=== PATIENT | female | born 1985 | race African-American/Black ===

== ENCOUNTER 2017-06-22 16:05 | Emergency (ER) | payer MEDICAID ==
[~2017-06-22] VITALS: Ht 177.8 cm; Wt 77.0 kg
[~2017-06-22 16:05] MED LIST: ZOFR4TAB3 SL
[2017-06-22 16:06] VITALS: BP 99/59; PULSE 85; RESP 16; TEMP 98.6; O2SAT 100
--- NOTE | 2017-06-22 16:12 | PD ---
Physical Exam Date Seen by Provider: Jun 22, 2017 Time Seen by Provider: 16:09 Narrative 31 YOBF 1 WEEK HO [place]. TODAY FEELING WEAK AND DIZZY .SENT HOME FROM WORK. 06/17 PAIN SHARP ACHING VS REVIEWED AWAITING BED PLACEMENT Data Data Last Documented VS Vital Signs Date Time Temp Pulse Resp B/P Pulse Ox O2 Delivery O2 Flow Rate FiO2 06/22/17 16:06 98.6 85 16 99/59 100 Room Air MDM Supervised Visit with NUBIA: Delmer Santos Jun 22, 2017 16:12
--- NOTE | 2017-06-22 20:23 | PD ---
HPI . nausea, vomiting, headache and abdominal cramping x 1 week Chief Complaint: Headache Time Seen by Provider: 20:22 Travel History International Travel<30 days: No Contact w/Intl Traveler<30days: No Traveled to known affect area: No History of Present Illness HPI 31- year old female with one miscarriage presents to the ED complaining of a headache. The patient reports she had a headache and dizziness for the past week. She tried Tylenol and another strong medication from her grandmother, but is unsure of the name. The patient reports the pain is currently in her left anabaptism, but has traveling around her head the past week. She rates it as a 9/ 10. She reports she has also has nausea, vomiting, diarrhea, and cramping for the past week. Patient denies any vaginal discharge or bleeding. She reports no medical conditions, and had 2- C-sections. She reports she is only on control. Her last menstrual period was in [facility] Past Medical History Anemia: Yes Diminished Hearing: No ?: Unknown Menopausal: No : 8 Para: 5 Miscarriage: 2 Social History Alcohol Use: No Tobacco Use: No Substance Use: No Allergies-Medications (Allergen,Severity, Reaction): Coded Allergies: No Known Allergies (Verified , 10/01/15) Reported Meds & Prescriptions Reported Meds & Active Scripts Active Keflex (Cephalexin) 500 Mg Cap 500 Mg PO Q12H 7 Days Zofran ODT (Ondansetron HCl) 4 Mg Tab 4 Mg SL TID FOR NAUSEA/VOMITING Review of Systems General / Constitutional: No: Fever Eyes: No: Visual changes HENT: No: Headaches Cardiovascular: No: Chest Pain or Discomfort Respiratory: No: Shortness of Breath Gastrointestinal: Positive: Nausea, Vomiting, Diarrhea, Abdominal Pain ( cramping) Genitourinary: No: Dysuria Musculoskeletal: No: Pain Skin: No Rash Neurologic: Positive: Headache, No: Weakness Psychiatric: No: Depression Endocrine: No: Polydipsia Hematologic/Lymphatic: No: Easy Bruising Physical Exam Narrative GENERAL: AAO x 3, no acute distress, Well-nourished, well-developed patient. SKIN: Warm and dry. No visible rashes or bruising. HEAD: Normocephalic and atraumatic. EYES: No scleral icterus. No injection or drainage. EOM intact, PERRLA ENT: No nasal drainage noted. Mucous membranes pink. Airway patent. moist mucous membranes, TMs normal b/l, no oropharynx abn. NECK: Supple, trachea midline. No JVD. CARDIOVASCULAR: Regular rate and rhythm without murmurs, gallops, or rubs. RESPIRATORY: Breath sounds equal bilaterally. No accessory muscle use. No rhonchi or rales. GASTROINTESTINAL: Abdomen soft, non-tender, nondistended. no rebound or guarding EXTREMITIES: No cyanosis or edema. BACK: Nontender without obvious deformity. No CVA tenderness. NEURO: CN II-12 intact, meat stringer strength normal b/l, UE and LE 5/5, no focal deficits PSYCH: AAO x 3, normal affect. Data Data Last Documented VS Vital Signs Date Time Temp Pulse Resp B/P Pulse Ox O2 Delivery O2 Flow Rate FiO2 06/22/17 20:31 84 18 122/75 98 Room Air 06/22/17 16:06 98.6 Orders Ed Urine Pregnancytest Poc (06/22/17 16:12) Beta Hcg (Quant/Titer) (06/22/17 20:43) Complete Blood Count With Diff (06/22/17 20:43) Us Pelvis (Ques Preg/Ectopic) (06/22/17 ) Urinalysis - C+S If Indicated (06/22/17 20:43) Comprehensive Metabolic Panel (06/22/17 20:43) Lipase (06/22/17 20:43) Metoclopramide (Reglan) (06/22/17 20:45) Sodium Chlor 0.9% 1000 Ml Inj (Ns 1000 M (06/22/17 20:45) Acetaminophen (Tylenol) (06/22/17 20:45) Urine Culture (06/22/17 20:50) Cephalexin (Keflex) (06/22/17 22:45) Labs Laboratory Tests Test 06/22/17 20:50 White Blood Count 8.1 TH/MM3 Red Blood Count 4.86 MIL/MM3 Hemoglobin 10.1 GM/DL Hematocrit 32.2 % Mean Corpuscular Volume 66.3 FL Mean Corpuscular Hemoglobin 20.8 PG Mean Corpuscular Hemoglobin 31.4 % Concent Red Cell Distribution Width 17.9 % Platelet Count 303 TH/MM3 Mean Platelet Volume 8.6 FL Neutrophils (%) (Auto) 55.2 % Lymphocytes (%) (Auto) 35.0 % Monocytes (%) (Auto) 8.4 % Eosinophils (%) (Auto) 1.1 % Basophils (%) (Auto) 0.3 % Neutrophils # (Auto) 4.5 TH/MM3 Lymphocytes # (Auto) 2.8 TH/MM3 Monocytes # (Auto) 0.7 TH/MM3 Eosinophils # (Auto) 0.1 TH/MM3 Basophils # (Auto) 0.0 TH/MM3 CBC Comment DIFF FINAL Differential Comment Urine Color YELLOW Urine Turbidity HAZY Urine pH 6.5 Urine Specific [place] 1.020 Urine Protein TRACE mg/dL Urine Glucose (UA) NEG mg/dL Urine Ketones NEG mg/dL Urine Occult Blood NEG Urine Nitrite NEG Urine Bilirubin NEG Urine Urobilinogen LESS THAN 2.0 MG/DL Urine Leukocyte Esterase LARGE Urine RBC 2 /hpf Urine WBC 9 /hpf Urine Squamous Epithelial 12 /hpf Cells Urine Amorphous Sediment RARE Urine Mucus FEW /lpf Microscopic Urinalysis Comment CULTURE INDICATED Sodium Level 131 MEQ/L Potassium Level 3.8 MEQ/L Chloride Level 101 MEQ/L Carbon Dioxide Level 23.6 MEQ/L Anion Gap 6 MEQ/L Blood Urea Nitrogen 9 MG/DL Creatinine 0.58 MG/DL Estimat Glomerular Filtration 147 ML/MIN Rate Random Glucose 77 MG/DL Calcium Level 8.6 MG/DL Total Bilirubin 0.1 MG/DL Aspartate Amino Transf 18 U/L (AST/SGOT) Alanine Aminotransferase 13 U/L (ALT/SGPT) Alkaline Phosphatase 60 U/L Total Protein 7.9 GM/DL Albumin 3.6 GM/DL Lipase 132 U/L Human Chorionic Gonadotropin, [address] MIU/ML Quant [facility] Medical Decision Making Medical Screen Exam Complete: Yes Emergency Medical Condition: Yes Medical Record Reviewed: Yes Differential Diagnosis , miscarriage, sinusitis, Narrative Course 31-year-old female here with complaints of nausea, vomiting, abdominal cramping and headache for the past week. On examination there are no gross abnormalities. She does have point of care test that was positive. I believe many of her symptoms are related to early . Report some abdominal cramping, therefore I have ordered a beta hCG as well as an ultrasound. I have provided her with reglan, tylenol and IVF. Case has been discussed with my attending Dr. Garay, who will resume care of this patient. Scripts Cephalexin (Keflex)500 Mg [id number] Mg PO Q12H 7 Days Ref 0 Prov:Toni Garay MD 06/22/17 Condition: Stable Harriet Chavez Jun 22, 2017 20:22
[2017-06-22 20:31] VITALS: BP 122/75; PULSE 84; RESP 18; O2SAT 98
[2017-06-22] MEDS ORDERED: METOCLOPRAMIDE HCL 10 MG TAB PO ONE (20:45)
[2017-06-22] MEDS ORDERED: ACETAMINOPHEN 325 MG TAB PO ONE (20:45)
[2017-06-22] MEDS ORDERED: SODIUM CHLOR 0.9% 1000 ML INJ 1,000 ML IV ONE (20:45)
[2017-06-22 21:32] LABS: AUTOMATED NEUTROPHIL # 4.5 TH/MM3 (1.8-7.7); BASOPHIL % 0.3 % (0.0-2.0); EOSINOPHIL # 0.1 TH/MM3 (0-0.4); EOSINOPHIL % 1.1 % (0.0-4.0); HEMATOCRIT 32.2 % (35.0-46.0); HEMO FLAGS DIFF FINAL; LYMPHOCYTE # 2.8 TH/MM3 (1.0-4.8); MEAN CELL VOLUME 66.3 FL (80.0-100.0); MEAN CORPUSCULAR HEMOGLOBIN 20.8 PG (27.0-34.0); MEAN CORPUSCULAR HGB CONC 31.4 % (32.0-36.0); MONO % 8.4 % (0.0-8.0); NEUT % 55.2 % (16.0-70.0); PLATELET COUNT 303 TH/MM3 (150-450); RED BLOOD COUNT 4.86 MIL/MM3 (4.00-5.30); RED CELL DISTRIBUTION WIDTH 17.9 % (11.6-17.2); WHITE BLOOD COUNT 8.1 TH/MM3 (4.0-11.0)
[2017-06-22 21:41] LABS: BLOOD, URINE NEG (NEG); COMMENT (UR) CULTURE INDICATED; CULTURE IF INDICATED CULTURE INDICATED; GLUCOSE,URINE NEG (NEG); KETONE, URINE NEG (NEG); MUCUS URINE FEW /lpf (OCC); NITRITE,URINE NEG (NEG); PH, URINE 6.5 (5.0-8.5); SQUAMOUS EPITHELIAL CELL URINE 12 /hpf (0-5); URINE COLOR YELLOW (YELLW/STRAW)
[2017-06-22 21:55] LABS: ALT (GPT) 13 U/L (10-53)
[2017-06-22 22:13] LABS: ALKALINE PHOSPHATASE 60 U/L (45-117); BETA HCG QUANT 79188 MIU/ML (0-5); TOTAL BILIRUBIN ADULT 0.1 MG/DL (0.2-1.0)
[2017-06-22 22:25] LABS: ANION GAP 6 MEQ/L (5-15); AST (GOT) 18 U/L (15-37); BICARBONATE 23.6 MEQ/L (21.0-32.0); BLOOD UREA NITROGEN 9 MG/DL (7-18); CHLORIDE 101 MEQ/L (98-107); GLOMERULAR FILTRATION RATE 147 ML/MIN (>89); POTASSIUM 3.8 MEQ/L (3.5-5.1); SODIUM (NA) 131 MEQ/L (136-145)
[2017-06-22] MEDS ORDERED: CEPH-460 PO (22:33)
--- NOTE | 2017-06-22 22:34 | PD ---
Data Data Last Documented VS Vital Signs Date Time Temp Pulse Resp B/P Pulse Ox O2 Delivery O2 Flow Rate FiO2 06/22/17 20:31 84 18 122/75 98 Room Air 06/22/17 16:06 98.6 Orders Ed Urine Pregnancytest Poc (06/22/17 16:12) Beta Hcg (Quant/Titer) (06/22/17 20:43) Complete Blood Count With Diff (06/22/17 20:43) Us Pelvis (Ques Preg/Ectopic) (06/22/17 ) Urinalysis - C+S If Indicated (06/22/17 20:43) Comprehensive Metabolic Panel (06/22/17 20:43) Lipase (06/22/17 20:43) Metoclopramide (Reglan) (06/22/17 20:45) Sodium Chlor 0.9% 1000 Ml Inj (Ns 1000 M (06/22/17 20:45) Acetaminophen (Tylenol) (06/22/17 20:45) Urine Culture (06/22/17 20:50) Cephalexin (Keflex) (06/22/17 22:45) Labs Laboratory Tests Test 06/22/17 20:50 White Blood Count 8.1 TH/MM3 Red Blood Count 4.86 MIL/MM3 Hemoglobin 10.1 GM/DL Hematocrit 32.2 % Mean Corpuscular Volume 66.3 FL Mean Corpuscular Hemoglobin 20.8 PG Mean Corpuscular Hemoglobin 31.4 % Concent Red Cell Distribution Width 17.9 % Platelet Count 303 TH/MM3 Mean Platelet Volume 8.6 FL Neutrophils (%) (Auto) 55.2 % Lymphocytes (%) (Auto) 35.0 % Monocytes (%) (Auto) 8.4 % Eosinophils (%) (Auto) 1.1 % Basophils (%) (Auto) 0.3 % Neutrophils # (Auto) 4.5 TH/MM3 Lymphocytes # (Auto) 2.8 TH/MM3 Monocytes # (Auto) 0.7 TH/MM3 Eosinophils # (Auto) 0.1 TH/MM3 Basophils # (Auto) 0.0 TH/MM3 CBC Comment DIFF FINAL Differential Comment Urine Color YELLOW Urine Turbidity HAZY Urine pH 6.5 Urine Specific [place] 1.020 Urine Protein TRACE mg/dL Urine Glucose (UA) NEG mg/dL Urine Ketones NEG mg/dL Urine Occult Blood NEG Urine Nitrite NEG Urine Bilirubin NEG Urine Urobilinogen LESS THAN 2.0 MG/DL Urine Leukocyte Esterase LARGE Urine RBC 2 /hpf Urine WBC 9 /hpf Urine Squamous Epithelial 12 /hpf Cells Urine Amorphous Sediment RARE Urine Mucus FEW /lpf Microscopic Urinalysis Comment CULTURE INDICATED Sodium Level 131 MEQ/L Potassium Level 3.8 MEQ/L Chloride Level 101 MEQ/L Carbon Dioxide Level 23.6 MEQ/L Anion Gap 6 MEQ/L Blood Urea Nitrogen 9 MG/DL Creatinine 0.58 MG/DL Estimat Glomerular Filtration 147 ML/MIN Rate Random Glucose 77 MG/DL Calcium Level 8.6 MG/DL Total Bilirubin 0.1 MG/DL Aspartate Amino Transf 18 U/L (AST/SGOT) Alanine Aminotransferase 13 U/L (ALT/SGPT) Alkaline Phosphatase 60 U/L Total Protein 7.9 GM/DL Albumin 3.6 GM/DL Lipase 132 U/L Human Chorionic Gonadotropin, [address] MIU/ML Quant MDM Medical Record Reviewed: Yes Supervised Visit with NUBIA: Yes Narrative Course CBC & BMP Diagram 06/22/17 20:50 LFTs are normal Lipase is normal The beta is 79,188 Urinalysis shows large leukocyte esterase and WBCs suggestive of UTI Ultrasound reveals intrauterine at 8 weeks The patient is resting comfortably and feels better, is alert and in no distress. The patients results and examination findings were discussed. The repeat examination is unremarkable and benign. The history, exam, diagnostic testing, and current condition do not suggest any significant pathology to warrant further testing, continued ED treatment, admission, or surgical evaluation at this point. The vital signs have been stable. The patient does not have uncontrollable pain, intractable vomiting, or other significant symptoms. The patient's condition is stable and appropriate for discharge. The patient will pursue further outpatient evaluation with a primary care physician or other designated or consulting physician as indicated in the discharge instructions. The patient expressed understanding and was agreeable with this plan. Diagnosis Primary Impression: Intrauterine Additional Impression: Cystitis Referrals: Glory Ga MD 2 days Additional Instruction: You have a choice when it comes to health care, and we are glad that you chose [facility]. Hopefully, we have met your expectations on today's visit. You are welcome to return to [facility] at any time, as we are committed to meeting the health care needs of our community. Med/Other Pt SpecificInfo: Prescription(s) given Scripts Cephalexin (Keflex)500 Mg [id number] Mg PO Q12H 7 Days Ref 0 Prov:Toni Garay MD 06/22/17 Disposition: 01 DISCHARGE HOME Condition: Stable Toni Garay MD Jun 22, 2017 22:33
[2017-06-22] MEDS ORDERED: CEPHALEXIN MONOHYDRATE 500 MG CAP PO ONE (22:45)
--- NOTE | 2017-06-22 23:27 | RADRPT ---
EXAM DATE/TIME: 06/22/2017 22:10 [place] COMPARISON: US PELVIS ([facility] PREG/ECTOPIC), September 19, 2015, 13:14. INDICATIONS : Nausea/vomiting. LAB(S): Beta-hC MEDICAL HISTORY : . Headaches. Nausea. Vomiting. Miscarriage. Ovarian cyst. SURGICAL HISTORY : section. ENCOUNTER: Subsequent ACUITY: 1 day PAIN SCORE: 0/10 LOCATION: Bilateral pelvis MEASUREMENTS: UTERUS: 10.1 x 10.5 x 7.6 cm ENDOMETRIAL STRIPE: >20 mm RIGHT OVARY: 3.3 x 2.9 x 2.1 cm LEFT OVARY: 4.0 x 2.2 x 1.8 cm CROWN RUMP LENGTH: 1.7 cm = 8 WKS 1 DAYS FINDINGS: A viable intrauterine is identified within the uterus with crown-rump length and gestationa l sac size characteristic of between 8 and 9 week gestation. Yolk sac is identified. The gestationa l sac measures 4.3 x 3.6 x 2.1 cm. heart rate of 167 beats per minute is documented by Doppler . There is a 2.2 x 2.4 cm heterogeneous echotexture cystic area in the right ovary, possibly corpus luteum. The left ovary has a normal appearance. Minimal free fluid adjacent to the left adnexa. No free fluid in the cul-de-sac. CONCLUSION: Viable intrauterine dated between 8 and 9 weeks. João Greenfield MD on June 22, 2017 at 23:23 Board Certified Radiologist. This report was verified electronically.
== END 2017-06-22 23:24 | disposition home or self-care (01) ==
LOC: NEPD 16:05
DX: O23.11 Infections of bladder in pregnancy, first trimester (principal); Z3A.08 8 weeks gestation of pregnancy; R51 Headache
CPT/HCPCS: 76700; 80053; 81001; 83690; 84702; 84703; 85025; 87086; 99284; J7030